=== PATIENT | female | born 1950 | race Caucasian/White ===

== ENCOUNTER 2023-11-28 13:28 | Emergency (ER) | payer MEDICARE, BC, SELFPAY ==
--- NOTE | ~2023-11-28 | CT_ITS ---
EXAMINATION: CT brain wo con DATE: 11/28/2023 14:05 INDICATION: Head injury. TECHNIQUE: Computed tomography (CT) of the head was performed without intravenous contrast. The mA wa s adjusted according to patient size. Iterative reconstruction technique was employed. The dose-lengt h product was 605.33 mGy-cm. COMPARISON: None FINDINGS: There is no intracranial hemorrhage, acute infarction, or abnormal intracranial mass lesion . The ventricles are normal in size. There are likely changes of right ocular lens replacement surger y. The mastoid air cells are normal. There is mild mucosal thickening in the ethmoid sinuses. IMPRESSION: 1. Normal brain. Reviewed, dictated and finalized at location A. IMPRESSION: 1. Normal brain.
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
[2023-11-28 13:37] VITALS: BP 144/67; PULSE 67; RESP 18; TEMP 36.5; O2SAT 100
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
[2023-11-28 17:15] VITALS: BP 124/65; PULSE 65; RESP 19; O2SAT 96
[2023-11-28] MEDS: LIDOCAINE HCL 1% LOCAL INJ 10 ML VIAL 5 ML INFILTRATE (17:19)
[2023-11-28 18:32] VITALS: BP 132/68; PULSE 65; RESP 19; O2SAT 99
== END 2023-11-28 18:33 | disposition home or self-care (01) ==
PROVIDERS: Emergency Provider Physician Assistant
DX: S01.111A Laceration without foreign body of right eyelid and periocular area, initial encounter (principal); D68.51 Activated protein C resistance; Z79.01 Long term (current) use of anticoagulants; V18.4XXA Pedal cycle driver injured in noncollision transport accident in traffic accident, initial encounter; Y93.55 Activity, bike riding
CPT/HCPCS: 12013; 70450; 72125; 99284